=== PATIENT | male | born 1975 | race Caucasian/White ===

== ENCOUNTER 2020-08-12 11:48 | Emergency (ER) | payer BC ==
[2020-08-12] MEDS ORDERED: Sodium Chloride 0.9% 2.5 ML Syringe FLUSH PRN (11:54)
[2020-08-12] MEDS ORDERED: Sodium Chloride 0.9% 10 ML Syringe FLUSH PRN (11:54)
[2020-08-12] MEDS ORDERED: Aspirin 81 MG Tab.Chew PO ONE (12:03)
--- NOTE | 2020-08-12 12:03 | EDM.PDOC ---
ED HPI GENERAL MEDICAL PROBLEM - General Chief Complaint: Chest Pain Stated Complaint: CHEST PAIN/TINGLING LEFT ARM Time Seen by Provider: 08/12/20 11:50 Source of Information: Reports: Patient History Limitations: Reports: No Limitations - History of Present Illness INITIAL COMMENTS - FREE TEXT/NARRATIVE: Presents reporting chest pain 24 hours. The pain worsened this morning so he sought medical attention. He states that the pain is centered in the lower part of his sternum. This morning he also had pain in the "back teeth" and left elbow. No nausea, sweating, fever, injury, shortness of breath. He is otherwise healthy without chronic medical problems. He does not smoke. No family history of cardiac problems. chest Pain Score (Numeric/FACES): 8 - Related Data Allergies Allergy/AdvReac Type Severity Reaction Status Date / Time No Known Allergies Allergy Verified 08/12/20 12:00 Home Meds: Home Meds . [No Known Home Meds] 08/12/20 [History] ED ROS GENERAL - Review of Systems Review Of Systems: Comprehensive ROS is negative, except as noted in HPI. ED EXAM, GENERAL - Physical Exam Exam: See Below Exam Limited By: No Limitations General Appearance: Alert, No Apparent Distress Ears: Normal External Exam Nose: Normal Inspection Throat/Mouth: Normal Inspection, Normal Oropharynx Head: Atraumatic, Normocephalic Neck: Normal Inspection Respiratory/Chest: No Respiratory Distress, Lungs Clear, Normal Breath Sounds Cardiovascular: Normal Peripheral Pulses, Regular Rate, Rhythm Back Exam: Normal Inspection Extremities: Normal Inspection Neurological: Alert, Oriented, Normal Cognition Psychiatric: Normal Affect, Normal Mood Skin Exam: Warm, Dry, Intact, Normal Color, No Rash Lymphatic: No Adenopathy #1 Interpretation EKG Date: 08/12/20 Time: 11:58 Rhythm: NSR [place]: Normal P-Wave: Present QRS: Normal ST-T: Normal QT: Normal Comparison: NA - No Prior EKG EKG Interpretation Comments: ST elevations in III. #2 Interpretation EKG Date: 08/12/20 (Right sided) Time: 12:10 Rhythm: NSR [place]: Normal P-Wave: Present QRS: Normal ST-T: Normal QT: Normal EKG Interpretation Comments: Abnormal lateral Q-waves. ST elevation inferior leads #3 Interpretation EKG Date: 08/12/20 Time: 15:18 Rhythm: NSR [place]: Normal P-Wave: Present QRS: Normal ST-T: Normal QT: Normal Comparison: No Change EKG Interpretation Comments: Inferior infarct, acute ST >.10 in lead III Course - Vital Signs Last Recorded V/S: Last Vital Signs Temp 36.7 C 08/12/20 12:01 Pulse 90 08/12/20 16:28 Resp 16 08/12/20 14:05 BP 130/79 08/12/20 16:28 Pulse Ox 94 L 08/12/20 16:28 - Orders/Labs/Meds Labs: Laboratory Tests 08/12/20 08/12/20 08/12/20 Range/Units 11:59 11:59 11:59 WBC 11.14 H (4.0-11.0) K/uL RBC 5.33 (4.50-5.90) M/uL Hgb 16.6 (13.0-17.0) g/dL Hct 47.4 (38.0-50.0) % MCV 88.9 (80.0-98.0) fL MCH 31.1 (27.0-32.0) pg MCHC 35.0 (31.0-37.0) g/dL RDW Std Deviation 39.9 (28.0-62.0) fl RDW Coeff of Erik 12 (11.0-15.0) % Plt Count 194 (150-400) K/uL MPV 10.40 (7.40-12.00) fL Neut % (Auto) 63.3 (48.0-80.0) % Lymph % (Auto) 25.4 (16.0-40.0) % [place] % (Auto) 8.4 (0.0-15.0) % Eos % (Auto) 2.4 (0.0-7.0) % Baso % (Auto) 0.5 (0.0-1.5) % Neut # (Auto) 7.0 H (1.4-5.7) K/uL Lymph # (Auto) 2.8 H (0.6-2.4) K/uL [place] # (Auto) 0.9 H (0.0-0.8) K/uL Eos # (Auto) 0.3 (0.0-0.7) K/uL Baso # (Auto) 0.1 (0.0-0.1) K/uL Nucleated RBC % 0.0 /100WBC Nucleated RBCs # 0 K/uL APTT (18.6-31.3) SEC Sodium 136 (136-148) mmol/L Potassium 4.2 (3.5-5.1) mmol/L Chloride 100 (98-107) mmol/L Carbon Dioxide 28.8 (21.0-32.0) mmol/L BUN 12 (7.0-18.0) mg/dL Creatinine 1.1 (0.8-1.3) mg/dL Est Cr Clr Drug Dosing 85.70 mL/min Estimated GFR (MDRD) > 60.0 ml/min Glucose 198 H (74-106) mg/dL Hemoglobin A1c 6.4 H (4.5 - 6.2) % Calcium 8.9 (8.5-10.1) mg/dL Total Bilirubin 1.0 (0.2-1.0) mg/dL AST 35 (15-37) IU/L ALT 53 (14-63) IU/L Alkaline Phosphatase 126 H (46-116) U/L Troponin I < 0.050 (0.000-0.056) ng/mL Total Protein 7.7 (6.4-8.2) g/dL Albumin 4.1 (3.4-5.0) g/dL Globulin 3.6 (2.6-4.0) g/dL Albumin/Globulin Ratio 1.1 (0.9-1.6) Lipase (73-393) U/L SARS-CoV-2 (PCR) (NOT DETECT) SARS CoV-2 RNA Rapid YESENIA (NEGATIVE) 08/12/20 08/12/20 08/12/20 Range/Units 11:59 11:59 14:03 WBC (4.0-11.0) K/uL RBC (4.50-5.90) M/uL Hgb (13.0-17.0) g/dL Hct (38.0-50.0) % MCV (80.0-98.0) fL MCH (27.0-32.0) pg MCHC (31.0-37.0) g/dL RDW Std Deviation (28.0-62.0) fl RDW Coeff of Erik (11.0-15.0) % Plt Count (150-400) K/uL MPV (7.40-12.00) fL Neut % (Auto) (48.0-80.0) % Lymph % (Auto) (16.0-40.0) % [place] % (Auto) (0.0-15.0) % Eos % (Auto) (0.0-7.0) % Baso % (Auto) (0.0-1.5) % Neut # (Auto) (1.4-5.7) K/uL Lymph # (Auto) (0.6-2.4) K/uL [place] # (Auto) (0.0-0.8) K/uL Eos # (Auto) (0.0-0.7) K/uL Baso # (Auto) (0.0-0.1) K/uL Nucleated RBC % /100WBC Nucleated RBCs # K/uL APTT 24.4 (18.6-31.3) SEC Sodium (136-148) mmol/L Potassium (3.5-5.1) mmol/L Chloride (98-107) mmol/L Carbon Dioxide (21.0-32.0) mmol/L BUN (7.0-18.0) mg/dL Creatinine (0.8-1.3) mg/dL Est Cr Clr Drug Dosing mL/min Estimated GFR (MDRD) ml/min Glucose (74-106) mg/dL Hemoglobin A1c (4.5 - 6.2) % Calcium (8.5-10.1) mg/dL Total Bilirubin (0.2-1.0) mg/dL AST (15-37) IU/L ALT (14-63) IU/L Alkaline Phosphatase (46-116) U/L Troponin I 0.176 H* (0.000-0.056) ng/mL Total Protein (6.4-8.2) g/dL Albumin (3.4-5.0) g/dL Globulin (2.6-4.0) g/dL Albumin/Globulin Ratio (0.9-1.6) Lipase 87 (73-393) U/L SARS-CoV-2 (PCR) (NOT DETECT) SARS CoV-2 RNA Rapid YESENIA (NEGATIVE) 08/12/20 08/12/20 Range/Units 15:35 15:35 WBC (4.0-11.0) K/uL RBC (4.50-5.90) M/uL Hgb (13.0-17.0) g/dL Hct (38.0-50.0) % MCV (80.0-98.0) fL MCH (27.0-32.0) pg MCHC (31.0-37.0) g/dL RDW Std Deviation (28.0-62.0) fl RDW Coeff of Erik (11.0-15.0) % Plt Count (150-400) K/uL MPV (7.40-12.00) fL Neut % (Auto) (48.0-80.0) % Lymph % (Auto) (16.0-40.0) % [place] % (Auto) (0.0-15.0) % Eos % (Auto) (0.0-7.0) % Baso % (Auto) (0.0-1.5) % Neut # (Auto) (1.4-5.7) K/uL Lymph # (Auto) (0.6-2.4) K/uL [place] # (Auto) (0.0-0.8) K/uL Eos # (Auto) (0.0-0.7) K/uL Baso # (Auto) (0.0-0.1) K/uL Nucleated RBC % /100WBC Nucleated RBCs # K/uL APTT (18.6-31.3) SEC Sodium (136-148) mmol/L Potassium (3.5-5.1) mmol/L Chloride (98-107) mmol/L Carbon Dioxide (21.0-32.0) mmol/L BUN (7.0-18.0) mg/dL Creatinine (0.8-1.3) mg/dL Est Cr Clr Drug Dosing mL/min Estimated GFR (MDRD) ml/min Glucose (74-106) mg/dL Hemoglobin A1c (4.5 - 6.2) % Calcium (8.5-10.1) mg/dL Total Bilirubin (0.2-1.0) mg/dL AST (15-37) IU/L ALT (14-63) IU/L Alkaline Phosphatase (46-116) U/L Troponin I (0.000-0.056) ng/mL Total Protein (6.4-8.2) g/dL Albumin (3.4-5.0) g/dL Globulin (2.6-4.0) g/dL Albumin/Globulin Ratio (0.9-1.6) Lipase (73-393) U/L SARS-CoV-2 (PCR) NOT DETECTED (NOT DETECT) SARS CoV-2 RNA Rapid YESENIA NEGATIVE (NEGATIVE) Meds: Medications Discontinued Medications Generic Name Dose Route Start Last Admin Trade Name Bradley PRN Reason Stop Dose Admin Aspirin 324 mg 08/12/20 12:03 08/12/20 12:10 Aspirin PO 08/12/20 12:04 324 mg ONETIME ONE Administration Al Hydroxide/Mg Hydroxide 15 0 ml 08/12/20 12:47 08/12/20 12:49 ml/ Lidocaine HCl 5 ml PO 08/12/20 12:48 1 each ONETIME ONE Administration Heparin Sodium (Porcine) 4,000 units 08/12/20 14:55 08/12/20 15:25 Heparin Sodium IVPUSH 08/12/20 14:56 4,000 units ONETIME ONE Administration Sodium Chloride 1,000 mls @ 999 mls/hr 08/12/20 13:56 08/12/20 14:31 Normal Saline IV 08/12/20 14:56 999 mls/hr .Bolus ONE Administration Heparin Sodium/Sodium Chloride 25,000 unit in 500 mls @ 19.595 mls/hr 08/12/20 15:15 08/12/20 15:26 Heparin-1/2ns 25,000 Units/500 IV 9 units/kg/hr TITRATE EUGENIA 19.595 mls/hr Administration Protocol 9 UNITS/KG/HR Nitroglycerin/Dextrose 25 mg in 250 mls @ 3 mls/hr 08/12/20 15:15 08/12/20 15:54 Nitroglycerin 25 Mg/D5w 250 Ml IV 5 mcg/min TITRATE EUGENIA 3 mls/hr Administration 5 MCG/MIN Morphine Sulfate 2 mg 08/12/20 12:31 08/12/20 12:41 Morphine IVPUSH 08/12/20 12:32 2 mg ONETIME ONE Administration Morphine Sulfate 2 mg 08/12/20 14:37 08/12/20 14:44 Morphine IVPUSH 08/12/20 14:38 2 mg ONETIME ONE Administration Nitroglycerin 0.4 mg 08/12/20 11:54 08/12/20 12:22 Nitrostat SL 08/12/20 11:55 0.4 mg ONETIME ONE Administration Ondansetron HCl 4 mg 08/12/20 12:31 08/12/20 12:41 Zofran IVPUSH 08/12/20 12:32 4 mg ONETIME ONE Administration Sodium Chloride 10 ml 08/12/20 11:54 08/12/20 12:20 Saline Flush FLUSH 10 ml ASDIRECTED PRN Administration Keep Vein Open Sodium Chloride 2.5 ml 08/12/20 11:54 08/12/20 12:21 Saline Flush FLUSH 2.5 ml ASDIRECTED PRN Administration Keep Vein Open - Re-Assessments/Exams Free Text/Narrative Re-Assessment/Exam: 08/12/20 16:[address] Zurita, Cardiology [facility]. EKGs texted to same. Lab, history, clinical course discussed. Dr. Zurita will arrange for interventional cardiology. Meets criteria for flight transfer. Dr. Sania MD Emergency Medicine continually updated and followed this patient including EKG, clinical findings and management. Free Text/Narrative Re-Assessment/Exam: 08/12/20 16:[address] Robison, interventional cardiology at [facility]. Labs, EKG, clinical history. Departure - Departure Time of Disposition: 16:49 Disposition: DC/Tfer to Acute Hospital 02 Reason for Transfer *Q: Primary PCI Indicated Condition: Good Clinical Impression: Acute coronary syndrome STEMI (ST elevation myocardial infarction) Qualifiers: Involved coronary artery: other inferior wall coronary artery Qualified Code(s): I21.19 - ST elevation (STEMI) myocardial infarction involving other coronary artery of inferior wall Referrals: PCP,Not In Area [Primary Care Provider] - Forms: ED Department Discharge
--- NOTE | 2020-08-12 12:09 | PCM.SN.2 ---
#1 Interpretation EKG Date: 08/12/20 Time: 11:59 Rhythm: NSR Rate (Beats/Min): 65 [place]: Normal P-Wave: Present QRS: Normal ST-T: Other (elevation 1-mm III, 2-mm aVF, STD 1-mm aVL w/ TWI, TWI lead V2) QT: Normal MS/PQ Interval: 151 EKG Interpretation Comments: EKG concerning for inferior MA
[2020-08-12] MEDS: Nitroglycerin 0.4 MG Tab.SL SL ONE ×3 (12:12→12:22)
[2020-08-12] MEDS ORDERED: Ondansetron 4 MG/2 ML SDV IVPUSH ONE (12:31)
[2020-08-12] MEDS ORDERED: Morphine 2 MG/ML SYRINGE IVPUSH ONE ×2 (12:31→14:37)
[2020-08-12 12:44] LABS: BLOOD UREA NITROGEN,BUN 12 mg/dL (7.0-18.0); CARBON DIOXIDE,CO2 28.8 mmol/L (21.0-32.0); CHLORIDE,CL 100 mmol/L (98-107); GLUCOSE RANDOM 198 mg/dL (74-106); POTASSIUM,K 4.2 mmol/L (3.5-5.1); SODIUM,NA 136 mmol/L (136-148)
[2020-08-12] MEDS ORDERED: Alum Hydrox/Mag Hydrox/Simeth 15 ML, Lidocaine 2% 5 ML PO ONE ×2 (12:47)
[2020-08-12 13:11] LABS: HEMOGLOBIN A1C 6.4 %
[2020-08-12] MEDS ORDERED: Sodium Chloride 0.9% 1,000 ML IV ONE (13:56)
[2020-08-12] MEDS ORDERED: Heparin Sodium 5,000 Units/ML Vial IVPUSH ONE (14:55)
[2020-08-12] MEDS ORDERED: Heparin Sod,Pork In 0.45% Nacl 25,000 UNIT/500 ML IV.SOLN IV SCH (15:15)
[2020-08-12] MEDS ORDERED: Nitroglycerin/D5W 25 MG/250 ML BOTTLE IV SCH (15:15)
== END 2020-08-12 17:12 ==
LOC: MW.ED 11:48
DX: I21.19 ST elevation (STEMI) myocardial infarction involving other coronary artery of inferior wall (principal); I24.9 Acute ischemic heart disease, unspecified; Z20.828 Contact with and (suspected) exposure to other viral communicable diseases
CPT/HCPCS: 36415; 80053; 83036; 83690; 84484; 85025; 85730; 87635; 93005; 96365; 96367; 96375; 96376; 99285; A9270; J1644; J2270; J2405; J3490; J7030; 93010; 99284; U0002